=== PATIENT | female | born 1960 | race Caucasian/White ===

== ENCOUNTER → 2021-06-20 15:51 | Outpatient (CLI) | payer MEDICARE, OTHER, SELFPAY ==
[2021-06-20 17:24] LABS: COVID19 -Nasal RAPID Negative (Negative)
== END ==
PROVIDERS: Visit Provider Physician Assistant
DX: Z20.822 Contact with and (suspected) exposure to COVID-19 (principal)
CPT/HCPCS: 87635

== ENCOUNTER → 2021-06-25 14:27 | Outpatient (CLI) | payer MEDICARE, OTHER, SELFPAY ==
[2021-06-25 15:07] LABS: COVID19 -Nasal RAPID Negative (Negative)
== END ==
PROVIDERS: Visit Provider Nurse Practitioner
DX: J02.9 Acute pharyngitis, unspecified (principal); R05 Cough; R51.9 Headache, unspecified; Z20.822 Contact with and (suspected) exposure to COVID-19
CPT/HCPCS: 87635